=== PATIENT | female | born 1975 | race African-American/Black ===

== ENCOUNTER 2020-05-13 | Emergency (ER) | payer OTHER ==
[~2020-05-13] VITALS: Ht 177.8 cm; Wt 131.5 kg
[2020-05-13] MEDS ORDERED: SODIUM CHLORIDE 0.9% 50ML 50 ML ONE (03:37)
[2020-05-13] MEDS ORDERED: IOPAMIDOL 370 MG/ML 200 ML INFUS..BTL INJ ONE (03:37)
== END 2020-05-13 02:40 | disposition home or self-care (01) ==
LOC: FSED 01:30
DX: R07.9 Chest pain, unspecified (principal); I10 Essential (primary) hypertension
CPT/HCPCS: 71260; 99284; Q9967; 93005